=== PATIENT | female | born 1955 | race Caucasian/White ===

== ENCOUNTER → 2023-03-07 | Day surgery (SDC) | payer MEDICARE, OTHER ==
[~2023-03-07] VITALS: Ht 154.9 cm; Wt 81.8 kg
[~2023-03-07] MED LIST: ALBU18HF12 IH; ALBUTEROL SULFATE 2.5 MG/0.5 ML NEB SOLUTION NEB ONE; APIX5TAB PO; ATEN-73 PO; AZEL23SP2 NASAL; BENZOCAINE 20% 50 MCG/SPRAY 57 GM TP ONE; BUDE180H IH; BUSP5TAB20 PO; CLAR250T39 PO; ESCI-8 PO; FAMO20 PO; FentaNYL CITRATE PF 100 MCG/2 ML VIAL ONE; HYDR-4723 PO; IPRA0.2S49 NEB; LANS-74 PO; LIDOCAINE 2% 11 ML JELLY TP ONE; LIDOCAINE 4% 50 ML SOLUTION TP ONE; METF-1211 PO; MIDAZOLAM HCL 2 MG/2 ML VIAL ONE; MONT-35 PO; MULT-1366 PO; MethylPREDNISolone SOD SUCC 125 MG/2 ML VIAL IVP ONE; MethylPREDNISolone SOD SUCC 125 MG/2 ML VIAL ONE; PROM118S5 PO; PROMETHAZINE HCL/CODEINE 6.25-10MG/5ML SOLUTION UDCUP PO ONE; SODIUM CHLORIDE 0.9% 0 ML ONE; SODIUM CHLORIDE 0.9% 1,000 ML IV ONE; SODIUM CHLORIDE 0.9% 1,000 ML ONE; TRAZ-252 PO; UNK BP MED PO
[2023-03-07 08:11] LABS: GLUCOMETER DEV NAME(LOC) SDS.; GLUCOSE,POINT OF CARE 78 MG/DL (70-110)
[2023-03-07 09:10] VITALS: PULSE 82; RESP 18; O2SAT 98
== END | disposition still patient (30) ==
LOC: SURGERY 07:02
PROVIDERS: ATTEND Internal Medicine Critical Care Medicine
DX: J38.4 Edema of larynx (principal); B37.0 Candidal stomatitis; J39.8 Other specified diseases of upper respiratory tract; I10 Essential (primary) hypertension; Z79.899 Other long term (current) drug therapy; Z98.890 Other specified postprocedural states; Z87.01 Personal history of pneumonia (recurrent); E11.9 Type 2 diabetes mellitus without complications
CPT/HCPCS: 31623; 88112; 82962; 87206; 87101; 87220; 87070; 31624; 71045; 87015; J3010; J2250; J2930; Q9967; J7030; J7613; Z7610

== ENCOUNTER 2024-01-11 06:41 | Day surgery (SDC) | payer MEDICARE, OTHER ==
[~2024-01-11] VITALS: Ht 154.9 cm; Wt 86.4 kg
[~2024-01-11 06:41] MED LIST changes: -ALBUTEROL SULFATE 2.5 MG/0.5 ML NEB SOLUTION NEB ONE; -BENZOCAINE 20% 50 MCG/SPRAY 57 GM TP ONE; -FentaNYL CITRATE PF 100 MCG/2 ML VIAL ONE; +HYDR-4062 PO; -HYDR-4723 PO; -LIDOCAINE 2% 11 ML JELLY TP ONE; -LIDOCAINE 4% 50 ML SOLUTION TP ONE; -MIDAZOLAM HCL 2 MG/2 ML VIAL ONE; -MethylPREDNISolone SOD SUCC 125 MG/2 ML VIAL IVP ONE; -MethylPREDNISolone SOD SUCC 125 MG/2 ML VIAL ONE; -PROMETHAZINE HCL/CODEINE 6.25-10MG/5ML SOLUTION UDCUP PO ONE; -SODIUM CHLORIDE 0.9% 0 ML ONE; -SODIUM CHLORIDE 0.9% 1,000 ML IV ONE
[2024-01-11] MEDS ORDERED: BENZOCAINE 20% 50 MCG/SPRAY 57 GM TP ONE (06:42)
[2024-01-11] MEDS ORDERED: ALBUTEROL SULFATE 2.5 MG/0.5 ML NEB SOLUTION NEB ONE (06:42)
[2024-01-11] MEDS ORDERED: LIDOCAINE 4% 50 ML SOLUTION TP ONE (06:42)
[2024-01-11] MEDS ORDERED: LIDOCAINE 2% 11 ML JELLY TP ONE (06:42)
[2024-01-11] MEDS ORDERED: FentaNYL CITRATE PF 100 MCG/2 ML VIAL ONE (08:05)
[2024-01-11] MEDS ORDERED: MIDAZOLAM HCL 2 MG/2 ML VIAL ONE (08:05)
[2024-01-11 08:06] LABS: GLUCOMETER DEV NAME(LOC) SDS.; GLUCOSE,POINT OF CARE 82 MG/DL (70-110)
[2024-01-11] MEDS: SODIUM CHLORIDE 0.9% 1,000 ML IV ONE (08:22)
[2024-01-11 09:57] VITALS: PULSE 92; RESP 21; O2SAT 95
[2024-01-11] MEDS ORDERED: MethylPREDNISolone SOD SUCC 125 MG/2 ML VIAL ONE (10:11)
[2024-01-11] MEDS: MethylPREDNISolone SOD SUCC 125 MG/2 ML VIAL IVP ONE (10:13)
[2024-01-11] MEDS ORDERED: PROMETHAZINE HCL/PHENYLEPHRINE/CODEINE 5 ML ORAL.SYG PO ONE (10:15)
[2024-01-11] MEDS: PROMETHAZINE HCL/CODEINE 6.25-10MG/5ML SOLUTION UDCUP PO ONE (11:09)
== END 2024-01-11 12:00 | disposition home or self-care (01) ==
LOC: SURGERY 06:41
PROVIDERS: ATTEND Internal Medicine Critical Care Medicine
DX: R05.3 Chronic cough (principal); J38.4 Edema of larynx; B37.0 Candidal stomatitis; R04.2 Hemoptysis; J84.10 Pulmonary fibrosis, unspecified; J98.8 Other specified respiratory disorders; J98.09 Other diseases of bronchus, not elsewhere classified; I10 Essential (primary) hypertension; E11.9 Type 2 diabetes mellitus without complications; Z85.21 Personal history of malignant neoplasm of larynx
CPT/HCPCS: 31623; 82962; 87206; 87101; 87220; 88108; 87070; 31624; 94640; 71045; 87015; J3010; J2250; J2919; J7030; J3490; J7613; Z7610

== ENCOUNTER 2024-11-07 06:40 | Day surgery (SDC) | payer MEDICARE, OTHER ==
[~2024-11-07] VITALS: Ht 152.4 cm; Wt 85.5 kg
[~2024-11-07 06:40] MED LIST changes: -BUDE180H IH; -SODIUM CHLORIDE 0.9% 1,000 ML ONE; +[UNRECOGNIZED DRUG - CODE] IH
[2024-11-07] MEDS ORDERED: SODIUM CHLORIDE 0.9% 1,000 ML ONE (06:41)
[2024-11-07] MEDS: SODIUM CHLORIDE 0.9% 1,000 ML IV ONE (07:33)
[2024-11-07 07:46] LABS: GLUCOMETER DEV NAME(LOC) SDS.; GLUCOSE,POINT OF CARE 79 MG/DL (70-110)
[2024-11-07] MEDS ORDERED: FentaNYL CITRATE PF 100 MCG/2 ML VIAL ONE (08:14)
[2024-11-07] MEDS ORDERED: MIDAZOLAM HCL 2 MG/2 ML VIAL ONE (08:15)
[2024-11-07 09:25] VITALS: PULSE 96; RESP 23; O2SAT 99
[2024-11-07] MEDS ORDERED: MethylPREDNISolone SOD SUCC 125 MG/2 ML VIAL ONE (09:58)
[2024-11-07] MEDS: MethylPREDNISolone SOD SUCC 125 MG/2 ML VIAL IVP ONE (10:15)
[2024-11-07] MEDS: PROMETHAZINE HCL/CODEINE 6.25-10MG/5ML SOLUTION UDCUP PO ONE (10:15)
[2024-11-07] MEDS ORDERED: ALBUTEROL SULFATE 2.5 MG/0.5 ML NEB SOLUTION NEB ONE (12:00)
[2024-11-07] MEDS ORDERED: LIDOCAINE 4% 50 ML SOLUTION ONE (12:00)
[2024-11-07] MEDS ORDERED: LEVALBUTEROL 1.25 MG/0.5 ML NEB SOLUTION NEB ONE (12:00)
[2024-11-07] MEDS ORDERED: LIDOCAINE 2% 11 ML JELLY ONE (12:00)
[2024-11-07] MEDS ORDERED: BENZOCAINE 20% 50 MCG/SPRAY 57 GM ONE (12:00)
== END 2024-11-07 14:05 | disposition home or self-care (01) ==
LOC: SURGERY 06:40
PROVIDERS: ATTEND Internal Medicine Critical Care Medicine
DX: R05.3 Chronic cough (principal); R04.2 Hemoptysis; J38.4 Edema of larynx; B37.0 Candidal stomatitis; Z79.899 Other long term (current) drug therapy
CPT/HCPCS: 31623; 82962; 87206; 87101; 87220; 87070; 31624; 71045; J3010; J2250; J2919; J7030; 87015; 88108; J7613; Z7610